=== PATIENT | female | born 1980 | race Caucasian/White ===

== ENCOUNTER 2018-07-14 05:39 | Day surgery (SDC) | payer BC, OTHER ==
[2018-07-14] MEDS ORDERED: CIPROFLOXACIN 400MG/D5W 200 ML (08:18)
[2018-07-14] MEDS ORDERED: FENTAnyl 50 MCG/ML VIAL (08:19)
[2018-07-14] MEDS ORDERED: MIDAZOLAM 1 MG/ML 2 ML INJ ×2 (08:19)
== END 2018-07-14 10:29 | disposition home or self-care (01) ==
LOC: GIL 05:39
DX: K29.70 Gastritis, unspecified, without bleeding (principal); I10 Essential (primary) hypertension; E11.9 Type 2 diabetes mellitus without complications; E78.5 Hyperlipidemia, unspecified; Z79.84 Long term (current) use of oral hypoglycemic drugs
CPT/HCPCS: 43239; 88305; 88312

== ENCOUNTER 2018-08-08 05:41 | Day surgery (SDC) | payer BC ==
[2018-08-08] MEDS ORDERED: MIDAZOLAM 1 MG/ML 2 ML INJ ×3 (08:11→08:12)
[2018-08-08] MEDS ORDERED: FENTAnyl 50 MCG/ML VIAL (08:12)
== END 2018-08-08 15:49 | disposition home or self-care (01) ==
LOC: GIL 05:41
DX: K29.30 Chronic superficial gastritis without bleeding (principal); K31.7 Polyp of stomach and duodenum; K29.60 Other gastritis without bleeding; D13.2 Benign neoplasm of duodenum; I10 Essential (primary) hypertension; E11.9 Type 2 diabetes mellitus without complications; E78.5 Hyperlipidemia, unspecified
CPT/HCPCS: 43239; 82962; 84703; 88305; 88312

== ENCOUNTER → 2018-12-16 | Outpatient (CLI) | payer BC ==
[2018-12-16 17:06] LABS: ANION GAP 9 (5-13); BLOOD UREA NITROGEN 18 mg/dl (7-20); CALCIUM 9.6 mg/dl (8.4-10.2); CARBON DIOXIDE 25 mmol/L (21-31); CHLORIDE 106 mmol/L (97-110); CREATININE 0.67 mg/dl (0.44-1.00); Estimated GFR > 60 mL/min (>60); GLUCOSE 116 mg/dl (70-220); POTASSIUM 3.8 mmol/L (3.5-5.1); SODIUM 140 mmol/L (135-144)
== END | disposition home or self-care (01) ==
LOC: LAB 16:25
DX: R93.1 Abnormal findings on diagnostic imaging of heart and coronary circulation (principal); R07.9 Chest pain, unspecified
CPT/HCPCS: 80048

== ENCOUNTER → 2019-01-10 | Outpatient (CLI) | payer BC ==
[~2019-01-10] MED LIST: DILTIAZEM 25 MG INJ; METOPROLOL 100 MG TAB; METOPROLOL 5 MG INJ; NITROGLYCERIN AEROSOL (4.9 GM)
== END | disposition home or self-care (01) ==
LOC: C/S 11:07
DX: R07.9 Chest pain, unspecified (principal)
CPT/HCPCS: Z7610

== ENCOUNTER → 2019-02-27 | Outpatient (CLI) | payer BC ==
[~2019-02-27] MED LIST changes: -DILTIAZEM 25 MG INJ; -METOPROLOL 100 MG TAB; -METOPROLOL 5 MG INJ; +METOPROLOL 5 MG INJ IV; -NITROGLYCERIN AEROSOL (4.9 GM)
[2019-02-27] MEDS: METOPROLOL 100 MG TAB (09:33)
[2019-02-27] MEDS: DILTIAZEM 25 MG INJ IV (11:42)
[2019-02-27] MEDS: METOPROLOL 5 MG INJ (12:20)
[2019-02-27] MEDS: DILTIAZEM 60 MG TAB PO (13:40)
== END | disposition home or self-care (01) ==
LOC: C/S 08:11
DX: R94.39 Abnormal result of other cardiovascular function study (principal)
CPT/HCPCS: Z7610